=== PATIENT | female | born 1940 | race Two or more races ===

== ENCOUNTER 2023-07-09 17:17 | Emergency (ER) | payer OTHER ==
[~2023-07-09] VITALS: Ht 160 cm; Wt 73.9 kg
[2023-07-09] MEDS ORDERED: COZAAR100 MG (17:36)
[2023-07-09] MEDS ORDERED: SIMETHICONE80 MG (17:37)
[2023-07-09 18:00] LABS: HEMATOCRIT 37.9 % (36.0-45.00); HEMOGLOBIN 12.4 g/dL (12.0-15.00); MEAN CORPUSCULAR HEMOGLOBIN 25.9 pg (27.00-32.0); MEAN CORPUSCULAR HGB CONC 32.8 g/dl (32.0-36.0); PLATELET COUNT 228 K/uL (150-450); RED CELL DISTRIBUTION WIDTH 14.2 % (11.5-14.5)
[2023-07-09 18:25] LABS: ALBUMIN 3.5 gm/dL (3.4-5.0); BILIRUBIN TOTAL 0.55 mg/dL (0.3-1.2); CALCIUM 9.3 mg/dL (8.5-10.1); CREATININE SERUM 0.86 mg/dL (0.55-1.02); GFR 63.02; POTASSIUM 4.13 mEq/L (3.5-5.1); TOTAL PROTEIN 7.5 gm/dL (6.4-8.2)
[2023-07-09 23:38] LABS: INR 1.03; PROTHROMBIN TIME 10.8 SECONDS (9.0-11.5)
== END 2023-07-10 00:54 | disposition designated cancer center or children's hospital (05) ==
LOC: ER 17:17
PROVIDERS: General Practice
DX: I62.1 Nontraumatic extradural hemorrhage (principal); G30.8 Other Alzheimer's disease; F02.80 Dementia in other diseases classified elsewhere, unspecified severity, without behavioral disturbance, psychotic disturbance, mood disturbance, and anxiety; Z20.822 Contact with and (suspected) exposure to COVID-19